=== PATIENT | female | born 2000 | race Two or more races ===

== ENCOUNTER 2025-05-28 14:55 | Emergency (ER) | payer MEDICAID ==
[~2025-05-28] VITALS: Ht 157.5 cm; Wt 86.2 kg
[2025-05-28] MEDS: ACETAMINOPHEN 325 MG TABLET PO ONE (15:50)
[2025-05-28 16:31] VITALS: BP 139/95; TEMP 98.6; O2SAT 99
== END 2025-05-28 16:32 | disposition home or self-care (01) ==
LOC: ER 15:04
DX: S01.01XA Laceration without foreign body of scalp, initial encounter (principal); W22.8XXA Striking against or struck by other objects, initial encounter; Y93.89 Activity, other specified; Y92.89 Other specified places as the place of occurrence of the external cause; Y99.8 Other external cause status
CPT/HCPCS: 12001; 99282; A6403

== ENCOUNTER 2025-06-04 11:27 | Emergency (ER) | payer MEDICAID ==
[~2025-06-04] VITALS: Ht 157.5 cm; Wt 86.2 kg
[2025-06-04 11:31] VITALS: BP 126/68; TEMP 98
[2025-06-04 11:43] VITALS: O2SAT 98
== END 2025-06-04 11:43 | disposition home or self-care (01) ==
LOC: ER 11:27
DX: S01.01XD Laceration without foreign body of scalp, subsequent encounter (principal); Z48.02 Encounter for removal of sutures; X58.XXXD Exposure to other specified factors, subsequent encounter